=== PATIENT | female | born 1960 | race African-American/Black ===

== ENCOUNTER 2018-01-28 19:35 | Emergency (ER) | payer OTHER ==
[~2018-01-28] VITALS: Ht 180.3 cm; Wt 125.3 kg
[~2018-01-28 19:35] MED LIST: ALLOPURINOL300 MG PO; DAILY VALUE1 EACH PO; FLECTOR 1.3%1 PATC1 TD; HYDROCHLOROTHIA25 MG PO; LOSARTAN POTAS100 MG PO; METFORMIN HCL1000 M3 PO
[2018-01-28] MEDS ORDERED: CLEOCIN150 MG PO (20:04)
[2018-01-28 20:37] VITALS: BP 124/72
== END 2018-01-28 20:38 | disposition home or self-care (01) ==
LOC: EXP 19:35 → EME 19:35 → EXP 20:38
DX: S80.861A Insect bite (nonvenomous), right lower leg, initial encounter (principal); L08.9 Local infection of the skin and subcutaneous tissue, unspecified; W57.XXXA Bitten or stung by nonvenomous insect and other nonvenomous arthropods, initial encounter; C95.90 Leukemia, unspecified not having achieved remission; Z79.899 Other long term (current) drug therapy; Z92.21 Personal history of antineoplastic chemotherapy
CPT/HCPCS: 99281; 99283